=== PATIENT | male | born 1965 | race Caucasian/White ===

== ENCOUNTER → 2017-08-24 | Outpatient (CLI) | payer OTHER ==
[~2017-08-24] MED LIST: ASPI-1471 PO; CINN500C12 PO; CITA-139 PO; DOCU-416 PO; GLIP-152 PO; GLIP-154 PO; HYDR-385 PO; METF-420 PO; METO25TA93 PO; NAPR220C12 PO; OXYC-823 PO; POLY17PO25 PO; WARF-18 PO
[2017-08-24 13:52] LABS: INR 1.27
== END ==
LOC: LAB 13:27
PROVIDERS: ATTEND Internal Medicine
DX: I48.91 Unspecified atrial fibrillation (principal)
CPT/HCPCS: 36415; 85610

== ENCOUNTER → 2017-08-30 | Outpatient (CLI) | payer OTHER ==
[2017-08-30 17:10] LABS: INR 1.67
== END ==
LOC: LAB 16:48
PROVIDERS: ATTEND Internal Medicine
DX: Z51.81 Encounter for therapeutic drug level monitoring (principal); Z79.01 Long term (current) use of anticoagulants; I48.0 Paroxysmal atrial fibrillation
CPT/HCPCS: 36415; 85610

== ENCOUNTER → 2017-09-07 | Outpatient (CLI) | payer OTHER ==
[2017-09-07 17:04] LABS: INR 2.36
== END ==
LOC: LAB 16:35
PROVIDERS: ATTEND Internal Medicine
DX: Z51.81 Encounter for therapeutic drug level monitoring (principal); Z79.01 Long term (current) use of anticoagulants; I48.0 Paroxysmal atrial fibrillation
CPT/HCPCS: 36415; 85610

== ENCOUNTER → 2017-09-18 | Outpatient (CLI) | payer OTHER ==
[2017-09-18 13:39] LABS: INR 1.6
== END ==
LOC: LAB 13:02
PROVIDERS: ATTEND Internal Medicine
DX: Z51.81 Encounter for therapeutic drug level monitoring (principal); Z79.01 Long term (current) use of anticoagulants; I48.0 Paroxysmal atrial fibrillation
CPT/HCPCS: 36415; 85610

== ENCOUNTER → 2017-09-27 | Outpatient (CLI) | payer OTHER ==
[2017-09-27 16:01] LABS: INR 2.28
== END ==
LOC: LAB 15:33
PROVIDERS: ATTEND Internal Medicine
DX: Z51.81 Encounter for therapeutic drug level monitoring (principal); Z79.01 Long term (current) use of anticoagulants; I48.0 Paroxysmal atrial fibrillation
CPT/HCPCS: 36415; 85610

== ENCOUNTER → 2017-10-04 | Outpatient (CLI) | payer OTHER ==
[~2017-10-04] MED LIST changes: -WARF-18 PO; +WARF5TAB23 PO
[2017-10-04 14:05] LABS: INR 2.5
== END ==
LOC: LAB 13:38
PROVIDERS: ATTEND Internal Medicine
DX: Z51.81 Encounter for therapeutic drug level monitoring (principal); Z79.01 Long term (current) use of anticoagulants; I48.0 Paroxysmal atrial fibrillation
CPT/HCPCS: 36415; 85610

== ENCOUNTER → 2017-10-15 | Outpatient (CLI) | payer OTHER ==
[2017-10-15 16:00] LABS: INR 2.94
== END ==
LOC: LAB 15:22
PROVIDERS: ATTEND Internal Medicine
DX: Z51.81 Encounter for therapeutic drug level monitoring (principal); Z79.01 Long term (current) use of anticoagulants; I48.0 Paroxysmal atrial fibrillation
CPT/HCPCS: 36415; 85610

== ENCOUNTER → 2017-10-29 | Outpatient (CLI) | payer MEDICAID ==
[~2017-10-29] MED LIST changes: +HYDR-4309 PO
[2017-10-29 11:55] LABS: INR 5.12
== END ==
LOC: LAB 10:16
PROVIDERS: ATTEND Internal Medicine
DX: Z51.81 Encounter for therapeutic drug level monitoring (principal); Z79.01 Long term (current) use of anticoagulants; I48.0 Paroxysmal atrial fibrillation
CPT/HCPCS: 36415; 85610

== ENCOUNTER → 2017-10-29 | Outpatient (CLI) | payer MEDICAID, OTHER ==
--- NOTE | 2017-10-29 16:56 | RADIOLOGY IMAGING REPORT ---
FACILITY: PATIENT NAME: Miah Shipley : 1965 MR: [id number] V: [id number] EXAM DATE: ORDERING PHYSICIAN: TONIA HUBBARD TECHNOLOGIST: Location: [facility] [place] Patient: Miah Shipley : 1965 Visit/Account:[id number] Date of Sevice: 10/29/2017 Exam type: HIP RIGHT History: right hip pain after fall. is on coumadin Comparison: None. Findings: Two views of the right hip reveal no evidence of acute fracture or dislocation. No significant arthr itic changes identified. The SI joints appear symmetric bilaterally. IMPRESSION: 1. No evidence of acute fracture or dislocation involving the right hip In light of the clinical history of Coumadin therapy and increasing size of the right thigh relative to the left following trauma the right thigh ultrasound or CT is recommended Report Dictated By: Roopa Garcia MD at 10/29/2017 4:51 PM Report E-Signed By: Roopa Garcia MD at 10/29/2017 4:53 PM WSN:[email or web address]
--- NOTE | 2017-10-29 18:07 | RADIOLOGY IMAGING REPORT ---
FAC[place] [facility] [place] PATIENT NAME: Miah Shipley : 1965 MR: [id number] V: [id number] EXAM DATE: ORDERING PHYSICIAN: TONIA HUBBARD TECHNOLOGIST: Location: [facility] - [place] Patient: Miah Shipley : 1965 Visit/Account:[id number] Date of Sevice: 10/29/2017 Exam type: SOFT TISSUE NON-SPECIFIC History: Fell on right hip, patient on Coumadin with increasing size of right thigh Comparison: None. Findings: There is a large complex collection along the lateral aspect of the right thigh containing both liqui d and soft tissue density components measuring 8.6 x 7.1 cm likely a large hematoma. There are fluid fluid levels within several of the loculations likely layering blood products IMPRESSION: 1. Is a large complex collection along the lateral aspect of the right thigh containing both liquid and soft tissue density components measuring 8.6 x 7.1 cm. This likely represents a large hematoma. There are fluid fluid levels within several of the loculations likely layering blood products.. Results were called to TONIA HUBBARD at 10/29/2017 5:58 PM. Report Dictated By: Roopa Garcia MD at 10/29/2017 5:53 PM Report E-Signed By: Roopa Garcia MD at 10/29/2017 6:02 PM WSN:[email or web address]
== END ==
LOC: RAD 16:00
PROVIDERS: ATTEND Internal Medicine
DX: M79.81 Nontraumatic hematoma of soft tissue (principal)
CPT/HCPCS: 36415; 76999; 85610

== ENCOUNTER → 2017-10-31 | Outpatient (CLI) | payer MEDICAID, OTHER ==
[2017-10-31 16:36] LABS: INR 2.79
== END ==
LOC: LAB 15:46
PROVIDERS: ATTEND Internal Medicine
DX: Z51.81 Encounter for therapeutic drug level monitoring (principal); Z79.01 Long term (current) use of anticoagulants; Z86.79 Personal history of other diseases of the circulatory system
CPT/HCPCS: 36415; 85610

== ENCOUNTER → 2017-11-13 | Outpatient (CLI) | payer OTHER ==
[2017-11-13 16:22] LABS: INR 2.91
== END ==
LOC: RAD 16:01
PROVIDERS: ATTEND Internal Medicine
DX: Z51.81 Encounter for therapeutic drug level monitoring (principal); Z79.01 Long term (current) use of anticoagulants; I48.0 Paroxysmal atrial fibrillation
CPT/HCPCS: 36415; 85610

== ENCOUNTER → 2017-11-21 | Outpatient (CLI) | payer OTHER ==
--- NOTE | 2017-11-21 10:54 | RADIOLOGY IMAGING REPORT ---
FACILITY: [facility] PATIENT NAME: Miah Shipley : 1965 MR: [id number] V: [id number] EXAM DATE: ORDERING PHYSICIAN: ALFREDO MUIR TECHNOLOGIST: Location: [facility] Patient: Miah Shipley : 1965 Visit/Account:[id number] Date of Sevice: 11/21/2017 KNEE RIGHT W/O CONTRAST HISTORY: Knee pain. Injury. COMPARISON: None TECHNIQUE: Multiplanar/multisequence was obtained through the right knee without contrast. Contrast: None FINDINGS: ACL: Intact with a normal contour through the intracondylar notch. PCL: Normal MCL: Normal LCL: Fibular collateral ligament, biceps femoris tendon and popliteus tendons are intact. Iliotibial band is normal. Medial joint space: Mild intrasubstance high signal within the body and posterior horn of the medial meniscus without discrete tear. Articular cartilage is normal. Lateral joint space: Questionable nondisplaced tear involving the free edge at the junction of the an terior horn-body of the lateral meniscus on one coronal image (coronal image 18). Articular cartilage is normal. Joint effusion: None significant Popliteal cyst: None significant Bone marrow: Normal Quadriceps and patellar tendons: Normal. Large enthesophytes at the patellar tendon origin and jeremy ceps tendon insertion Patellofemoral joint: Normal articular cartilage. The retinaculum are intact. No patellar subluxation . Soft tissues: Normal Other findings: None significant IMPRESSION: 1. Equivocal nondisplaced tear at the free edge of the junction of the anterior horn-body of the late ral meniscus on one coronal image. Report Dictated By: Harish Joseph MD at 11/21/2017 10:46 AM Report E-Signed By: Harish Joseph MD at 11/21/2017 10:50 AM WSN:[email or web address]
== END ==
LOC: MRI 02:09
PROVIDERS: ATTEND Surgery
DX: S83.281A Other tear of lateral meniscus, current injury, right knee, initial encounter (principal)

== ENCOUNTER → 2017-11-21 | Outpatient (CLI) | payer OTHER ==
[2017-11-21 11:08] LABS: INR 4.64
== END ==
LOC: LAB 10:24
PROVIDERS: ATTEND Internal Medicine
DX: Z51.81 Encounter for therapeutic drug level monitoring (principal); Z79.01 Long term (current) use of anticoagulants; I48.0 Paroxysmal atrial fibrillation
CPT/HCPCS: 36415; 85610

== ENCOUNTER → 2017-11-27 | Outpatient (CLI) | payer OTHER ==
[2017-11-27 14:03] LABS: INR 3.33
== END ==
LOC: LAB 13:32
PROVIDERS: ATTEND Internal Medicine
DX: Z51.81 Encounter for therapeutic drug level monitoring (principal); Z79.01 Long term (current) use of anticoagulants; I48.0 Paroxysmal atrial fibrillation
CPT/HCPCS: 36415; 85610

== ENCOUNTER → 2017-12-10 | Outpatient (CLI) | payer OTHER ==
[2017-12-10 12:20] LABS: INR 3.16
== END ==
LOC: LAB 11:34
PROVIDERS: ATTEND Internal Medicine
DX: Z51.81 Encounter for therapeutic drug level monitoring (principal); I48.0 Paroxysmal atrial fibrillation; Z79.01 Long term (current) use of anticoagulants
CPT/HCPCS: 36415; 85610

== ENCOUNTER → 2017-12-26 | Outpatient (CLI) | payer MEDICAID ==
[2017-12-26 09:41] LABS: INR 2.52
== END ==
LOC: LAB 09:09
PROVIDERS: ATTEND Internal Medicine
DX: Z51.81 Encounter for therapeutic drug level monitoring (principal); Z79.01 Long term (current) use of anticoagulants; I48.0 Paroxysmal atrial fibrillation
CPT/HCPCS: 36415; 85610

== ENCOUNTER → 2018-01-09 | Outpatient (CLI) | payer MEDICAID ==
[~2018-01-09] MED LIST changes: -CITA-139 PO; +CITA-145 PO; -METF-420 PO; +METF-421 PO
[2018-01-09 16:36] LABS: INR 2.35
== END ==
LOC: LAB 16:00
PROVIDERS: ATTEND Internal Medicine
DX: Z51.81 Encounter for therapeutic drug level monitoring (principal); I48.0 Paroxysmal atrial fibrillation; Z79.01 Long term (current) use of anticoagulants
CPT/HCPCS: 36415; 85610

== ENCOUNTER → 2018-01-31 | Outpatient (CLI) | payer MEDICAID ==
[2018-01-31 09:35] LABS: INR 2.52
== END ==
LOC: LAB 09:11
PROVIDERS: ATTEND Internal Medicine
DX: Z51.81 Encounter for therapeutic drug level monitoring (principal); Z79.01 Long term (current) use of anticoagulants; I48.0 Paroxysmal atrial fibrillation
CPT/HCPCS: 36415; 85610

== ENCOUNTER → 2018-02-26 | Outpatient (CLI) | payer MEDICAID ==
[2018-02-26 14:18] LABS: INR 2.22
== END ==
LOC: LAB 12:53
PROVIDERS: ATTEND Internal Medicine
DX: Z51.81 Encounter for therapeutic drug level monitoring (principal); Z79.01 Long term (current) use of anticoagulants; I48.0 Paroxysmal atrial fibrillation
CPT/HCPCS: 36415; 85610

== ENCOUNTER → 2018-03-18 | Outpatient (CLI) | payer MEDICAID ==
[2018-03-18 13:27] LABS: INR 2.45
== END ==
LOC: LAB 12:51
PROVIDERS: ATTEND Internal Medicine
DX: Z51.81 Encounter for therapeutic drug level monitoring (principal); Z79.01 Long term (current) use of anticoagulants; I48.0 Paroxysmal atrial fibrillation
CPT/HCPCS: 36415; 85610

== ENCOUNTER → 2018-04-24 | Outpatient (CLI) | payer MEDICAID ==
[2018-04-24 13:17] LABS: INR 2.41
== END ==
LOC: LAB 12:57
PROVIDERS: ATTEND Internal Medicine
DX: I48.0 Paroxysmal atrial fibrillation (principal); Z79.01 Long term (current) use of anticoagulants; Z51.81 Encounter for therapeutic drug level monitoring
CPT/HCPCS: 36415; 85610

== ENCOUNTER → 2018-05-23 | Outpatient (CLI) | payer OTHER ==
[~2018-05-23] MED LIST changes: +LOSA25TA52 PO; -METF-421 PO; +METF-452 PO
[2018-05-23 14:10] LABS: PLATELET COUNT, AUTOMATED 255 K/uL (150-450)
[2018-05-23 14:12] LABS: INR 1.9
[2018-05-23 14:15] LABS: LDL CHOLESTEROL 85 mg/dl
== END ==
LOC: LAB 13:37
PROVIDERS: ATTEND Internal Medicine
DX: I48.91 Unspecified atrial fibrillation (principal); E11.9 Type 2 diabetes mellitus without complications; E66.9 Obesity, unspecified
CPT/HCPCS: 36415; 81001; 82040; 82043; 82247; 82310; 82374; 82435; 82465; 82565; 82947; 83036; 83718; 84075; 84132; 84153; 84155; 84295; 84443; 84450; 84460; 84478; 84520; 85025; 85610

== ENCOUNTER → 2018-06-07 | Outpatient (CLI) | payer OTHER ==
[~2018-06-07] MED LIST changes: +ATOR20TA65 PO; -HYDR-4309 PO; +HYDR-653 PO
[2018-06-07 10:22] LABS: INR 1.06
== END ==
LOC: LAB 09:27
PROVIDERS: ATTEND Internal Medicine
DX: I48.0 Paroxysmal atrial fibrillation (principal); Z51.81 Encounter for therapeutic drug level monitoring; Z79.01 Long term (current) use of anticoagulants
CPT/HCPCS: 36415; 85610

== ENCOUNTER → 2018-06-07 | Outpatient (CLI) | payer OTHER ==
--- NOTE | 2018-06-07 09:38 | RADIOLOGY IMAGING REPORT ---
FACILITY: [facility] - [place] PATIENT NAME: Miah Shipley : 1965 MR: [id number] V: [id number] EXAM DATE: ORDERING PHYSICIAN: CATHI LYLE TECHNOLOGIST: Location: [facility] [place] Patient: Miah Shipley : 1965 Visit/Account:[id number] Date of Sevice: 06/07/2018 3 views left hand Indication: Fall in October, pain in the pinky and left index finger. Comparison: None Available. Findings: Distal radius and ulna are intact. Calcifications are seen of the radial artery. The radiocarpal an d intercarpal alignment is within normal limits. The metacarpal and phalangeal bones are intact without fracture or acute osseous process. No signifi cant underlying degenerative change. No erosive articular change. IMPRESSION: 1.No acute osseous abnormality of the left hand Report Dictated By: Valdo Andrade MD at 06/07/2018 9:32 AM Report E-Signed By: Valdo Andrade MD at 06/07/2018 9:35 AM WSN:[id number]
== END ==
LOC: RAD 08:44
PROVIDERS: ATTEND Internal Medicine
DX: I48.91 Unspecified atrial fibrillation (principal); R20.0 Anesthesia of skin; I10 Essential (primary) hypertension

== ENCOUNTER → 2018-07-05 | Outpatient (CLI) | payer MEDICAID ==
[2018-07-05 08:33] LABS: INR 2.71
== END ==
LOC: LAB 08:08
PROVIDERS: ATTEND Internal Medicine
DX: Z51.81 Encounter for therapeutic drug level monitoring (principal); I48.0 Paroxysmal atrial fibrillation; Z79.01 Long term (current) use of anticoagulants
CPT/HCPCS: 36415; 85610

== ENCOUNTER 2018-07-14 09:34 | Emergency (ER) | payer MEDICAID ==
--- NOTE | 2018-07-14 09:54 | ER Report ---
History and Physical Time Seen By MD: 09:49 Hx. of Stated Complaint: pt slipped on the stairs yesterday. left foot swelling HPI/ROS CHIEF COMPLAINT: Left foot injury HISTORY OF PRESENT ILLNESS: Patient is a 53-year-old male who slipped and fell last evening on some steps. He slipped with the right foot causing him to land with his left foot under him. He is complaining of pain to the instep as well as the dorsum of the left foot. Patient is ambulatory but with discomfort REVIEW OF SYSTEMS: Musculoskeletal: No back pain. Left foot pain Allergies: Coded Allergies: No Known Drug Allergies (Unverified , 06/15/17) Home Meds Active Scripts Hydrocodone Bit/Acetaminophen (HYDROCODON-ACETAMINOPHEN 5-325) 1 Each Tablet, 1 EACH PO Q4-6H PRN for PAIN, #12 TAB 0 Refills TAKE ONE TABLET BY MOUTH EVERY 4-6 HOURS NEEDED FOR PAIN Prov:AINSLEY SIMONS MD 07/14/18 Atorvastatin Calcium (ATORVASTATIN CALCIUM) 20 Mg Tablet, 1 TAB PO QDAY, #30 TAB 4 Refills Prov:CATHI LYLE MD 06/07/18 Metformin Hcl (METFORMIN HCL) 1,000 Mg Tablet, 1 TAB PO BID, #180 TAB 0 Refills Prov:CATHI LYLE MD 05/23/18 Citalopram Hydrobromide (CITALOPRAM HBR) 20 Mg Tablet, 20 MG PO QDAY, #30 TAB Prov:CATHI LYLE MD 03/18/18 Warfarin Sodium (WARFARIN SODIUM) 5 Mg Tablet, 2 TAB PO QDAY, #60 TAB 6 Refills Prov:CATHI LYLE MD 07/31/17 Metoprolol Tartrate (METOPROLOL TARTRATE) 25 Mg Tablet, 1 TAB PO BID, #180 TAB 3 Refills Prov:CATHI LYLE MD 07/26/17 Reported Medications Losartan Potassium (LOSARTAN POTASSIUM) 25 Mg Tablet, 25 MG PO QDAY 05/23/18 Docusate Sodium (COLACE) 100 Mg Capsule, 100 MG PO BID, CAPSULE 06/27/17 Polyethylene Glycol 3350 (MIRALAX) 17 Gm Powd.pack, 17 GM PO BID, PKT 06/27/17 Aspirin (ASPIR 81) 81 Mg Tablet.dr, 81 MG PO QDAY, TAB 06/15/17 Past Medical/Surgical History Noncontributory towards this chief complaint Smoking Status: Never Smoker Hx Substance Use Disorder: No Hx Alcohol Use: Yes Constitutional Vital Sign - Last 24 Hours 07/14/18 07/14/18 07/14/18 07/14/18 09:38 10:15 10:45 11:15 Temp 98.6 Pulse 85 70 68 68 Resp 18 B/P (MAP) 154/91 Pulse Ox 93 93 93 96 O2 Delivery Room Air 07/14/18 11:24 B/P (MAP) 127/72 (90) Physical Exam General appearance: alert no distress Right ankle: There is no significant swelling. There is no obvious deformity to the ankle. No tenderness to either malleoli Ankle joint is stable and there is no tenderness over the achilles tendon. The foot is tender to the dorsum and lateral instep with some swelling. Neurologic exam: The patient has normal sensation distal to the injury. Vascular exam: Normal pulses and capillary refill in the foot [ ] Medical Decision Making EKG/Imaging Imaging FACILITY: [facility] - [place] PATIENT NAME: Miah Shipley : 1965 MR: [id number] V: [id number] EXAM DATE: [id number] ORDERING PHYSICIAN: AINSLEY SIMONS TECHNOLOGIST: Location: [facility] [place] Patient: Miah Shipley : 1965 Visit/Account:[id number] Date of Sevice: 07/14/2018 FOOT 3 VIEW LEFT HISTORY: Fall ADDITIONAL HISTORY: None. COMPARISON: None. FINDINGS: 3 views were obtained of the left foot. There is marked soft tissue swelling over the dorsum of foot. Alignment is anatomic. Joint spaces are well- maintained. There is no fracture identified. There is minor narrowing of first MTP joint without significant osteophyte formation. Spur projects off the dorsal surface of the talus. Plantar and posterior calcaneal spurs are present. Bony mineralization is normal. There are no aggressive lytic or blastic lesions. Extensive vascular calcifications noted. IMPRESSION: 1. Marked soft tissue swelling without evidence of fracture. If the patient has ongoing symptoms, follow-up study may be considered in 7-10 days. 2. Minor degenerative changes. 3. Plantar and posterior calcaneal spurs. 3. Extensive vascular calcifications. Report Dictated By: Kathy Thorpe MD at 07/14/2018 10:43 AM Report E-Signed By: Kathy Thorpe MD at 07/14/2018 10:46 AM WSN:[id number] ED Course/Re-evaluation ED Course 07/14/2018 9:55:36 am the time will be to x-ray the left foot Decision to Disposition Date: Jul 14, 2018 Decision to Disposition Time: 11:17 Depart Departure Latest Vital Signs Vital Signs Date Time Temp Pulse Resp B/P (MAP) Pulse Ox O2 Delivery O2 Flow Rate FiO2 07/14/18 11:24 127/72 (90) 07/14/18 11:15 68 96 07/14/18 09:38 98.6 18 Room Air Impression: Primary Impression: Foot contusion Condition: Improved Disposition: HOME OR SELF-CARE Referrals: CATHI LYLE MD (PCP) New Scripts Hydrocodone Bit/Acetaminophen (HYDROCODON-ACETAMINOPHEN 5-325) 1 Each Tablet 1 EACH PO Q4-6H PRN for PAIN, #12 TAB 0 Refills TAKE ONE TABLET BY MOUTH EVERY 4-6 HOURS NEEDED FOR PAIN Prov: AINSLEY SIMONS MD 07/14/18 Departure Forms: ER Transition Record, Medications Reconciliation, Off Work/School Form, School or Work Release?: Work Number of days to be released: 2 Patient Portal Information Patient Instructions: Foot Contusion (ED) Problem Qualifiers Primary Impression: Foot contusion Encounter type: initial encounter Laterality: left Qualified Codes: S90.32XA - Contusion of left foot, initial encounter AINSLEY SIMONS MD Jul 14, 2018 09:54
--- NOTE | 2018-07-14 10:49 | RADIOLOGY IMAGING REPORT ---
FACILITY: [facility] PATIENT NAME: Miah Shipley : 1965 MR: [id number] V: [id number] EXAM DATE: ORDERING PHYSICIAN: AINSLEY SIMONS TECHNOLOGIST: Location: [facility] Patient: Miah Shipley : 1965 Visit/Account:[id number] Date of Sevice: 07/14/2018 FOOT 3 VIEW LEFT HISTORY: Fall ADDITIONAL HISTORY: None. COMPARISON: None. FINDINGS: 3 views were obtained of the left foot. There is marked soft tissue swelling over the dorsum of foot. Alignment is anatomic. Joint spaces are well-maintained. There is no fracture identified. There is m inor narrowing of first MTP joint without significant osteophyte formation. Spur projects off the adina guerita surface of the talus. Plantar and posterior calcaneal spurs are present. Bony mineralization is normal. There are no aggressive lytic or blastic lesions. Extensive vascular calcifications noted. IMPRESSION: 1. Marked soft tissue swelling without evidence of fracture. If the patient has ongoing symptoms, fol low-up study may be considered in 7-10 days. 2. Minor degenerative changes. 3. Plantar and posterior calcaneal spurs. 3. Extensive vascular calcifications. Report Dictated By: Kathy Thorpe MD at 07/14/2018 10:43 AM Report E-Signed By: Kathy Thorpe MD at 07/14/2018 10:46 AM WSN:[id number]
[2018-07-14] MEDS ORDERED: LOR5/325 PO (10:57)
[2018-07-14 11:24] VITALS: BP 127/72
== END 2018-07-14 11:25 | disposition home or self-care (01) ==
LOC: ER 09:49
DX: S90.32XA Contusion of left foot, initial encounter (principal)
CPT/HCPCS: 99283

== ENCOUNTER → 2018-08-02 | Outpatient (CLI) | payer MEDICAID ==
[~2018-08-02] MED LIST changes: +LOR5/325 PO; -LOSA25TA52 PO; +LOSA25TA57 PO
[2018-08-02 08:21] LABS: INR 2.37
== END ==
LOC: LAB 07:55
PROVIDERS: ATTEND Internal Medicine
DX: Z51.81 Encounter for therapeutic drug level monitoring (principal); I48.0 Paroxysmal atrial fibrillation; Z79.01 Long term (current) use of anticoagulants
CPT/HCPCS: 36415; 85610